=== PATIENT | male | born 1975 | race Caucasian/White ===

== ENCOUNTER 2019-10-07 13:45 | Emergency (ER) | payer OTHER, SELFPAY ==
[2019-10-07] VITALS (18 sets, daily range): BP systolic 137–195; BP diastolic 70–104; PULSE 78–118; RESP 8–21; TEMP 36.9–37.4; O2SAT 95–100; BMI 29.1
--- NOTE | 2019-10-07 | DI.RAD.S_ITS ---
PROCEDURE: XR ANKLE RT 2V INDICATIONS: POST REDUCTION TECHNIQUE: 2 views of the ankle were acquired. COMPARISON: [facility], [place], XR ANKLE RT MIN 3V, 10/07/2019, 13:49. FINDINGS: Bones: There is a moderately displaced butterfly fracture of the distal fibula, as before. Alignment is slightly improved. There has been relocation of the ankle joint. There is a possible mildly displaced fracture of the posterior malleolus. Small bony fragment adjacent to the medial malleolus. Soft tissues: No tibiotalar joint effusion. Achilles tendon appears normal. IMPRESSION: 1. Relocation of the ankle joint. 2. Small fracture fragment adjacent to the medial malleolus. 3. Mildly displaced posterior malleolus fracture. 4. Improved alignment of distal fibular fracture. Dictated by: Christy Fatima M.D. on 10/07/2019 at 15:55 Approved by: Christy Fatima M.D. on 10/07/2019 at 15:56
--- NOTE | 2019-10-07 13:55 | DI.RAD.S_ITS ---
PROCEDURE: XR ANKLE RT MIN 3V INDICATIONS: twisted ankle. TECHNIQUE: 3 views of the ankle were acquired. COMPARISON: None. FINDINGS: Bones: Moderately displaced comminuted butterfly fracture of the distal fibula. Posterior and lateral dislocation of the talus. Widening of the medial ankle mortise. Soft tissues: No tibiotalar joint effusion. Achilles tendon appears normal. IMPRESSION: 1. Distal fibular fracture. 2. Dislocation of the ankle. Dictated by: Christy Fatima M.D. on 10/07/2019 at 13:11 Approved by: Christy Fatima M.D. on 10/07/2019 at 13:12
--- NOTE | 2019-10-07 15:31 | ED_ITS ---
HPI - Extremity Injury (Lower) <Riley DíazPOONAM Walsh - Last Filed: 10/07/19 17:46> General Chief Complaint: Extremity Injury, Lower Stated Complaint: Twist Rt ankle/ft is twisted too Time Seen by Provider: 10/07/19 14:44 Source: patient Limitations: no limitations History of Present Illness HPI Narrative: This is a 44 year male, former smoker and occasional tobacco chew, with noncontributing medical history presents to ED with chief complain of right ankle pain and deformity. Patient reports he accidentally stepped on a hole this morning at 2:00 a.m. and twisted his ankle and attempted to walk but after 2 steps he felt cracked and popping sensation and fell. Patient denies pain in his foot, knee, or hip. Patient reports pain is mainly in mid ear and lateral malleolar. Patient has been using cool pack continuously after the injury and had taken 800 mg ibuprofen 3 doses so far. Patient reports intact sensation and reports able to move his toes. Patient denies injury to right ankle or fractures in the past. Patient denies other injuries including head from fall. Patient resided in [place], [place] and currently visiting his friend in [facility] when the injury happened and it took some time travel to [facility] via [place]. His is currently driving to hear to taking back home. His follow-up will be in [place], [place]. Related Data Home Medications Medication Instructions Recorded Confirmed tamsulosin 0.4 mg PO DAILY 10/07/19 10/07/19 Previous Rx's Medication Instructions Recorded hydrocodone-acetaminophen [Atwood] 1 tab PO Q6H PRN #20 tab 10/07/19 Allergies Allergy/AdvReac Type Severity Reaction Status Date / Time Histamine H2 Inhibitors Allergy Verified 10/07/19 13:52 Review of Systems <Riley GraysonPOONAM Davis - Last Filed: 10/07/19 17:46> Review of Systems Narrative: General: Denies fever, chills, fatigue, malaise, sweats. HEENT: Denies sinus pain, ear pain, sore throat, difficulty swallowing, dizziness. Respiratory: Denies dyspnea, cough, wheezing, hemoptysis, sputum. Cardiovascular: Denies chest pain, palpitations, orthopnea, edema. Gastrointestinal: Denies nausea, vomiting, abdominal pain, diarrhea, constipation, melena. : Denies dysuria, frequency, incontinence, hematuria, urinary retention. Musculoskeletal: See HPI Skin: Denies rash, skin lesions, or other. Neurologic: Denies weakness, headache, numbness, change in speech, confusion, seizures, incoordination. Psychiatric: No concerning psychosocial issues. 12-point review of systems is negative except for those stated above. Patient History <POONAM Suggs - Last Filed: 10/07/19 17:46> Medical History BPH (benign prostatic hyperplasia) (Acute) Surgical History No pertinent past surgical history (Acute) tobacco type: smokeless tobacco alcohol intake frequency: 3 or more drinks per day Substance Use Type: marijuana Exam <POONAM Suggs - Last Filed: 10/07/19 17:46> Narrative Exam Narrative: General appearance: well developed, well nourished, in no acute distress. Head: normocephalic, atraumatic, no scalp lesions, non-tender. ENT: Hearing grossly intact. Nose without bleeding, purulent discharge. Mucous membrane moist, no mucosal lesion. Throat without erythema, tonsillar hypertrophy or exudate. Uvula in midline, airway patent. Neck/Thyroid: neck supple, full range of motion, no visible masses or meningeal signs. No JVD, non-tender without lymphadenopathy. Skin: no suspicious rashes, lesions over visible areas. Warm and dry and appropriate color for ethnicity. Heart: no clubbing, no cyanosis, no edema. S1 and S2 normal. RRR w/o murmurs, clicks, or bruits. Lungs: Breathing even and unlabored. No stridor. No accessory muscles used. Able to speak in full sentences. Chest: normal shape and expansion. Abdomen: non-obese, non-distended. Neurologic: alert and oriented. Cognitive exam, [employer] and PNS grossly intact on informal exam. Psych: good eye contact, normal affect. Initial Vital Signs Initial Vital Signs: Vital Signs Temperature 99.3 F 10/07/19 13:50 Pulse Rate 118 H 10/07/19 13:50 Respiratory Rate 14 10/07/19 13:50 Blood Pressure 137/79 10/07/19 13:50 Pulse Oximetry 99 10/07/19 13:50 Extrem Right lower extremity: hip/thigh Details: normal ROM; no tenderness and no swelling, knee Details: normal ROM; no tenderness and no swelling, lower leg Details: localized swelling (mild swelling to calf but compressible); no abrasions, no lacerations and no ecchymosis, ankle Details: abnormal to inspection, tenderness Location: of the lateral malleolus and of the medial malleolus, swelling and abnormal ROM Details: pain with active ROM and pain with passive ROM and foot Details: normal capillary refill (3 seconds), abnormal to inspection Details: a deformity Location: of the midfoot, tenderness Location: of the dorsal foot (medial aspect distal to ankle), toes with normal ROM, vascular exam Details: dorsalis pedis pulse present and posterior tibial pulse present and motor-sensory exam Details: light-touch normal; no unusual warmth, no abrasion, no laceration and no puncture wound <Ronaldo Shepherd MD - Last Filed: 10/08/19 08:09> Initial Vital Signs Initial Vital Signs: Vital Signs Temperature 99.3 F 10/07/19 13:50 Pulse Rate 118 H 10/07/19 13:50 Respiratory Rate 14 10/07/19 13:50 Blood Pressure 137/79 10/07/19 13:50 Pulse Oximetry 99 10/07/19 13:50 Procedures <POONAM Suggs - Last Filed: 10/07/19 17:46> Orthopedic Splinting/Casting Injury #1: Side: right Lower Extremity Injury Location: lower leg (distal fib fracture and posterior and lateral dislocation of talus) Lower Extremity Immobilizer: posterior splint and stirrup splint Other Orthopedic Equipment: crutches Post splinting neuro exam: intact Post splinting vascular exam: intact Placed by: Provider Procedural Sedation Consent signed: Yes Time out performed: Yes Indication: fracture/dislocation reduction ASA Class: I Mallampati Airway Classification: Class III Time of Last PO Intake: 12:30 Preparation: environmental monitoring technician applied, pulse oximeter, capnometry used, supplemental O2 applied, suction/airway equipment at bedside and IV secured Ketamine: IV Ketamine dose (mg): 70 IV Propofol dose (mg): 35 ED Sedation Level: Moderate (Concious) Patient Tolerated Procedure: Well Complications: none Interventions: Airway repositioned Additional Comments: This procedural sedation and closed reduction was performed by Dr. Shepherd, I pushed the medication under his supervision. Scores <POONAM Suggs - Last Filed: 10/07/19 17:46> GCS Quinton coma scale eye opening: Spontaneous Quinton coma scale verbal response: Orientated Quinton coma scale motor response: Obey commands Quinton coma scale total score: 15 Course <POONAM Suggs - Last Filed: 10/07/19 17:46> Orders Ordered: Discontinued Medications Acetaminophen (Tylenol) 325 mg PO NOW ONE Stop: 10/07/19 15:21 Last Admin: 10/07/19 17:43 Dose: Not Given Documented by: FAUSTINO Acetaminophen (Tylenol) 325 mg PO NOW ONE Stop: 10/07/19 17:31 Last Admin: 10/07/19 17:40 Dose: 325 mg Documented by: FAUSTINO Sodium Chloride (Normal Saline 0.9%) 1,000 mls @ 150 mls/hr IV CONT BENJAMIN Last Infusion: 10/07/19 17:44 Dose: 0 mls/hr Documented by: Admin: 10/07/19 16:04 Dose: 150 mls/hr Documented by: MARIE Ketamine HCl (Ketalar) 80 mg 1 mg/kg (80 mg) IV NOW ONE Stop: 10/07/19 15:26 Last Admin: 10/07/19 16:50 Dose: Not Given Documented by: FAUSTINO Ketamine HCl (Ketalar) 70 mg IV NOW ONE Stop: 10/07/19 15:31 Last Admin: 10/07/19 16:50 Dose: 70 mg Documented by: FAUSTINO Morphine Sulfate (Morphine) 4 mg IV NOW ONE Stop: 10/07/19 15:25 Last Admin: 10/07/19 16:03 Dose: 4 mg Documented by: MARIE Ondansetron HCl (Zofran) 4 mg IV NOW ONE Stop: 10/07/19 15:25 Last Admin: 10/07/19 16:04 Dose: 4 mg Documented by: MARIE Oxycodone/Acetaminophen (Percocet 5/325) 1 tab PO NOW ONE Stop: 10/07/19 15:21 Last Admin: 10/07/19 17:43 Dose: Not Given Documented by: FAUSTINO Oxycodone/Acetaminophen (Percocet 5/325) 1 tab PO NOW ONE Stop: 10/07/19 17:31 Last Admin: 10/07/19 17:40 Dose: 1 tab Documented by: FAUSTINO Propofol (Diprivan) 20 mg IV NOW ONE Stop: 10/07/19 15:26 Last Admin: 10/07/19 16:52 Dose: Not Given Documented by: FAUSTINO Propofol (Diprivan) 100 mg IV NOW ONE Stop: 10/07/19 15:31 Last Admin: 10/07/19 16:47 Dose: 35 mg Documented by: FAUSTINO Consultations Consultation #1: Dr. Solitario, orthopedist, consulted and it was recommended clos ed reduction of dislocation and placed fracture in posterior and stirrup splint and to follow up with orthopedic office. Time: 15:25 Vital Signs Vital signs: Vital Signs - 8 hr 10/07/19 13:50 10/07/19 14:26 10/07/19 16:11 Temperature 99.3 F 98.5 F Pulse Rate 118 H 115 H 103 H Respiratory Rate 14 18 Blood Pressure 137/79 146/87 H Pulse Oximetry 99 97 98 10/07/19 16:15 10/07/19 16:20 10/07/19 16:24 Temperature Pulse Rate 96 H 96 H 98 H Respiratory Rate 19 Blood Pressure 155/81 H Pulse Oximetry 97 97 98 10/07/19 16:25 10/07/19 16:30 10/07/19 16:35 Temperature Pulse Rate 95 H 98 H 103 H Respiratory Rate 18 21 8 L Blood Pressure 152/83 H 167/90 H 195/98 H Pulse Oximetry 97 100 100 10/07/19 16:40 10/07/19 16:45 10/07/19 16:50 Temperature Pulse Rate 105 H 97 H 97 H Respiratory Rate 20 14 18 Blood Pressure 190/100 H 182/99 H 184/104 H Pulse Oximetry 99 99 99 10/07/19 16:55 10/07/19 17:00 10/07/19 17:05 Temperature Pulse Rate 97 H 93 H 93 H Respiratory Rate 18 20 18 Blood Pressure 156/91 H 166/98 H 167/88 H Pulse Oximetry 98 98 98 10/07/19 17:10 10/07/19 17:15 Temperature Pulse Rate 97 H 90 Respiratory Rate 17 14 Blood Pressure 144/95 H 155/94 H Pulse Oximetry 96 95 <Ronaldo Shepherd MD - Last Filed: 10/08/19 08:09> Orders Ordered: Discontinued Medications Acetaminophen (Tylenol) 325 mg PO NOW ONE Stop: 10/07/19 15:21 Last Admin: 10/07/19 17:43 Dose: Not Given Documented by: FAUSTINO Acetaminophen (Tylenol) 325 mg PO NOW ONE Stop: 10/07/19 17:31 Last Admin: 10/07/19 17:40 Dose: 325 mg Documented by: FAUSTINO Sodium Chloride (Normal Saline 0.9%) 1,000 mls @ 150 mls/hr IV CONT BENJAMIN Last Infusion: 10/07/19 17:44 Dose: 0 mls/hr Documented by: Admin: 10/07/19 16:04 Dose: 150 mls/hr Documented by: MARIE Ketamine HCl (Ketalar) 80 mg 1 mg/kg (80 mg) IV NOW ONE Stop: 10/07/19 15:26 Last Admin: 10/07/19 16:50 Dose: Not Given Documented by: FAUSTINO Ketamine HCl (Ketalar) 70 mg IV NOW ONE Stop: 10/07/19 15:31 Last Admin: 10/07/19 16:50 Dose: 70 mg Documented by: FAUSTINO Morphine Sulfate (Morphine) 4 mg IV NOW ONE Stop: 10/07/19 15:25 Last Admin: 10/07/19 16:03 Dose: 4 mg Documented by: MARIE Ondansetron HCl (Zofran) 4 mg IV NOW ONE Stop: 10/07/19 15:25 Last Admin: 10/07/19 16:04 Dose: 4 mg Documented by: MARIE Oxycodone/Acetaminophen (Percocet 5/325) 1 tab PO NOW ONE Stop: 10/07/19 15:21 Last Admin: 10/07/19 17:43 Dose: Not Given Documented by: FAUSTINO Oxycodone/Acetaminophen (Percocet 5/325) 1 tab PO NOW ONE Stop: 10/07/19 17:31 Last Admin: 10/07/19 17:40 Dose: 1 tab Documented by: FAUSTINO Propofol (Diprivan) 20 mg IV NOW ONE Stop: 10/07/19 15:26 Last Admin: 10/07/19 16:52 Dose: Not Given Documented by: FAUSTINO Propofol (Diprivan) 100 mg IV NOW ONE Stop: 10/07/19 15:31 Last Admin: 10/07/19 16:47 Dose: 35 mg Documented by: FAUSTINO Vital Signs Vital signs: Vital Signs - 8 hr 10/07/19 13:50 10/07/19 14:26 10/07/19 16:11 Temperature 99.3 F 98.5 F Pulse Rate 118 H 115 H 103 H Respiratory Rate 14 18 Blood Pressure 137/79 146/87 H Pulse Oximetry 99 97 98 10/07/19 16:15 10/07/19 16:20 10/07/19 16:24 Temperature Pulse Rate 96 H 96 H 98 H Respiratory Rate 19 Blood Pressure 155/81 H Pulse Oximetry 97 97 98 10/07/19 16:25 10/07/19 16:30 10/07/19 16:35 Temperature Pulse Rate 95 H 98 H 103 H Respiratory Rate 18 21 8 L Blood Pressure 152/83 H 167/90 H 195/98 H Pulse Oximetry 97 100 100 10/07/19 16:40 10/07/19 16:45 10/07/19 16:50 Temperature Pulse Rate 105 H 97 H 97 H Respiratory Rate 20 14 18 Blood Pressure 190/100 H 182/99 H 184/104 H Pulse Oximetry 99 99 99 10/07/19 16:55 10/07/19 17:00 10/07/19 17:05 Temperature Pulse Rate 97 H 93 H 93 H Respiratory Rate 18 20 18 Blood Pressure 156/91 H 166/98 H 167/88 H Pulse Oximetry 98 98 98 10/07/19 17:10 10/07/19 17:15 Temperature Pulse Rate 97 H 90 Respiratory Rate 17 14 Blood Pressure 144/95 H 155/94 H Pulse Oximetry 96 95 MDM - Extremity Injury (Lower) <POONAM Suggs - Last Filed: 10/07/19 17:46> Differential Diagnosis Differential diagnosis: Likely ankle sprain and strain, ankle fracture and other (Ankle dislocation, tib fib fracture) Medical Records Attestation: I reviewed the patient's medical records. Imaging Data XR-Ankle RT: Radiologist's Impression: [address] [address] XRay Report Signed Patient: Jed Novoa#: [id number] : 1975Acct:[id number] Age/Sex: 44 / MDate of Service: 10/07/19 Loc: ED Accession Number: [id number] Procedure: XR ankle RT min 3V Ordering Provider: Ronaldo Shepherd MD PROCEDURE: XR ANKLE RT MIN 3V INDICATIONS: twisted ankle. TECHNIQUE: 3 views of the ankle were acquired. COMPARISON: None. FINDINGS: Bones: Moderately displaced comminuted butterfly fracture of the distal fibula. Posterior and lateral dislocation of the talus. Widening of the medial ankle mortise. Soft tissues: No tibiotalar joint effusion. Achilles tendon appears normal. IMPRESSION: 1. Distal fibular fracture. 2. Dislocation of the ankle. Dictated by: Christy Fatima M.D. on 10/07/2019 at 13:11 Approved by: Christy Fatima M.D. on 10/07/2019 at 13:12 XR-Post reduction RT Ankle: Radiologist's Impression: [place] [address] XRay Report Signed Patient: Jed Novoa#: [id number] : 1975Acct:[id number] Age/Sex: 44 / MDate of Service: 10/07/19 Loc: ED Accession Number: [id number] Procedure: XR ankle RT 2V Ordering Provider: Riley Jiang PROCEDURE: XR ANKLE RT 2V INDICATIONS: POST REDUCTION TECHNIQUE: 2 views of the ankle were acquired. COMPARISON: [facility] , XR ANKLE RT MIN 3V, 10/07/2019, 13:49. FINDINGS: Bones: There is a moderately displaced butterfly fracture of the distal fibula, as before. Alignment is slightly improved. There has been relocation of the ankle joint. There is a possible mildly displaced fracture of the posterior malleolus. Small bony fragment adjacent to the medial malleolus. Soft tissues: No tibiotalar joint effusion. Achilles tendon appears normal. IMPRESSION: 1. Relocation of the ankle joint. 2. Small fracture fragment adjacent to the medial malleolus. 3. Mildly displaced posterior malleolus fracture. 4. Improved alignment of distal fibular fracture. Dictated by: Christy Fatima M.D. on 10/07/2019 at 15:55 Approved by: Christy Fatima M.D. on 10/07/2019 at 15:56 [facility] Narrative Medical decision making narrative: This is a 44-year-old male who presents to ED with lateral and medial ankle pain after he injured 2:00 a.m. this morning after he stepped in a pothole accidentally. Patient had deformity on right foot with swelling around the ankle and slight swelling in calf. Initial x-ray on ankle shows moderately displaced comminuted butterfly fracture of the distal fibula with posterior and lateral dislocation of the talus. Patient has been using ibuprofen 800 mg 3 times so far after the injury. Dislocation and fracture was treated with closed reduction with procedural sedation by Dr. Shepherd. Patient tolerated procedure well without complications. Post reduction x-ray was obtained which indicates relocation of ankle joint with small fracture fragment adjacent to the medial malleolus, mildly displaced posterior malleolus fracture and improved alignment of distal fibula fracture. Affected foot has been placed on posterior and stirrup splint and crutch has been provided with teaching. Patient provided follow-up information with Dr. Cook in [place], [place] when he returns home today or tomorrow in 2-3 days. Patient discharged to home with Atwood for severe pain with pain medication precautions. Return precautions were discussed with the patient and spouse and both verbalized understanding in agreement with treatment plan. Discharge Plan Departure Patient Disposition: Home Clinical Impression: Fracture of tibia, distal Qualifiers: Encounter type: initial encounter Fracture type: closed Fracture morphology: pilon Fracture alignment: displaced Laterality: right Qualified Code(s): S82.871A - Displaced pilon fracture of right tibia, initial encounter for closed fracture Closed dislocation of foot Qualifiers: Encounter type: initial encounter Laterality: right Qualified Code(s): S93.304A - Unspecified dislocation of right foot, initial encounter Discharge Date/Time: 10/07/19 18:22 Instructions: DI for Ankle Dislocation, Fibula Shaft Fracture Activity Restrictions/Additional Instructions: You have been diagnosed with [moderately displaced communicated butterfly fracture of the distal fibula. Also there is posterior and lateral dislocation of the talus. The fracture and dislocation had reduced by procedural sedation in ED. please use RICE therapy. Cool pack on affected site frequently for next 24-48 hours with elevation. Please use splint all time and use crutches for weight-bearing. ]. What to do: *Take your medications as directed. You can use [id number] Tylenol as needed for mild-moderate pain. Tylenol 650-1000 mg up to 3 to 4 times a day as needed for pain. Ibuprofen 400-600 mg up to 3 times a day as needed for pain with food to decrease GI irritation. For severe pain you can take 1 tab of Atwood up to 4 times a day as needed. You can replace 1 regular Tylenol for Atwood as needed. Atwood has 325 mg of Tylenol mixed in. Adult can take up to 4000 mg Tylenol in 24 hour period. Atwood is narcotic pain medications so please do not drive, drink alcohol, operate heavy equipments. He can cause also constipation so please take precautions as drinking adequate fluid, high-fiber diet and [id number] stool softener. *Follow up with your primary care provider in 2-3 days, call for an appointment. Let them know you were seen in the ED and that we asked you to be seen in follow up. Please follow-up with Dr. Mikayla Cook at [facility] and phone number is [phone] in [place] (I got this information from [facility] in [place] where their patients follow up) *Return to ED if you have any new, worsening, or concerning symptoms, such as [chest pain, breathing difficulty, unable to tolerate fluids, weakness/numbness/tingling extremities, worsening pain or any acute concerns. Please have safe trip back home.]. Prescriptions: New hydrocodone-acetaminophen [Atwood] 5-325 mg tablet 1 tab PO Q6H PRN (Reason: pain) Qty: 20 RF: 0 No Action tamsulosin 0.4 mg Capsule 0.4 mg PO DAILY RF: 0
[2019-10-07] MEDS: MORPHINE 4 MG/ML INJ IV (16:03)
[2019-10-07] MEDS: ONDANSETRON 4 MG/2 ML INJ IV (16:04)
[2019-10-07] MEDS: SODIUM CHLORIDE 0.9% 1,000 ML 150 ML IV (16:04)
[2019-10-07] MEDS: propofoL 200 MG/20 ML VIAL 100 MG IV (16:47)
[2019-10-07] MEDS: KETAMINE 500 MG/5 ML INJ 70 MG IV (16:50)
[2019-10-07] MEDS: OXYCODONE/ACETAMINOPHEN 5/325 TABLET 1 TAB PO (17:40)
[2019-10-07] MEDS: ACETAMINOPHEN 325 MG TABLET PO (17:40)
== END 2019-10-07 18:22 | disposition home or self-care (01) ==
PROVIDERS: Emergency Provider Nurse Practitioner Family
DX: S82.871A Displaced pilon fracture of right tibia, initial encounter for closed fracture (principal); S93.304A Unspecified dislocation of right foot, initial encounter; W22.8XXA Striking against or struck by other objects, initial encounter
CPT/HCPCS: 27818; 29515; 36415; 73600; 73610; 94770; 96361; 96374; 96375; 99152; 99153; 99285; J2270; J2405; J2704